=== PATIENT | male | born 1980 | race Caucasian/White ===

== ENCOUNTER 2019-08-14 17:20 | Emergency (ER) | payer MEDICAID ==
[~2019-08-14] VITALS: Ht 177.8 cm; Wt 95.0 kg
[2019-08-14] MEDS ORDERED: ketorolac trometh inj. 60 MG/2 ML VIAL IM ONE (19:55)
[2019-08-14] MEDS ORDERED: HYDR-4383 PO (20:35)
[2019-08-14] MEDS ORDERED: IBUP-1984 PO (20:35)
[2019-08-14] MEDS ORDERED: BENZ-16 PO (20:37)
[2019-08-14 21:03] VITALS: BP 115/73
== END 2019-08-14 21:04 | disposition home or self-care (01) ==
LOC: ER 17:21
DX: M54.2 Cervicalgia (principal); Z88.1 Allergy status to other antibiotic agents
CPT/HCPCS: 96372; 99283; J1885